=== PATIENT | male | born 1955 | race Caucasian/White ===

== ENCOUNTER 2023-05-27 12:24 | Observation (INO) ==
[2023-05-27 13:28] LABS: ABS Eosinophils 0.2 10^3/uL (0.0-0.5); ABS Lymphocytes 1.7 10^3/uL (1.0-4.8); ABS Monocytes 0.6 10^3/uL (0.0-1.1); ABS Neutrophils 4.8 10^3/uL (1.5-7.6); ABS Nucleated RBC 0.01 10^3/ul; Eosinophil % 2.2 %; Hematocrit 38.7 % (38-53); Hemoglobin 13.4 g/dL (13.2-16.3); Lymphocyte % 23.9 %; Mean Corpuscular Hemoglobin 32.1 pg (27-33); Mean Corpuscular Hgb Conc 34.8 g/dL (31-36); Mean Corpuscular Volume 92.3 fL (80-97); Mean Platelet Volume 8.7 fL (7.5-11.2); Nucleated Red Blood Cells % 0.1 %/100WBC (0.0-0.8); Platelet Count 200 10^3/uL (150-450); Red Blood Count 4.19 10^6/uL (4.06-5.63); Red Cell Distribution Width 14.8 % (12-17); White Blood Count 7.3 10^3/uL (3.6-10.2)
[2023-05-27 14:04] LABS: ALT 43 U/L (7-52); Albumin 3.7 g/dL (3.2-5.2); Albumin/Globulin Ratio 1.2 (1-3); Alkaline Phosphatase 81 U/L (35-149); Anion Gap 12 mmol/L (2-16); Blood Urea Nitrogen 13 mg/dL (6-24); CO2 Carbon Dioxide 24 mmol/L (22-32); Calcium 8.5 mg/dL (8.6-10.3); Chloride 97 mmol/L (101-111); Creatinine, Serum 1.02 mg/dL (0.67-1.17); Globulin 3.1 g/dL (2-4); Glucose 111 mg/dL (70-100); Sodium 133 mmol/L (135-145); Total Bilirubin 0.8 mg/dL (0.2-1.0); Total Protein 6.8 g/dL (6.4-8.9); eGFR CKD-EPI 80.1 (>60)
[2023-05-27 14:07] LABS: High Sens Troponin Baseline 6 pg/mL (<20)
[2023-05-27 14:34] LABS: High Sensitivity Troponin 1 Hr 7 pg/mL (<20)
[2023-05-27] MEDS ORDERED: Dexamethasone IV 4 MG/ML VIAL 1 ml VIAL IV SLOW PU ONE (15:43)
[2023-05-27] MEDS ORDERED: Midazolam 2 mg/2 ml VIAL 1 mg/ml 2 ml VIAL (2 mg) IV SLOW PU ONE ×2 (20:27→20:52)
[2023-05-27] MEDS ORDERED: Gadoteridol (CONTRAST) 279.3 MG/ML 10 ML IV ONE (21:35)
[2023-05-27] MEDS ORDERED: Lactated Ringers 1000 ml BAG 1,000 ML IV ONE (22:38)
[2023-05-27] MEDS: NS 0.9% 1000 ml BAG 1,000 ML IV SCH (23:08)
[2023-05-27] MEDS: Dexamethasone IV 4 MG/ML VIAL 1 ml VIAL IV SLOW PU SCH (23:08)
[2023-05-28] MEDS: Dexamethasone IV 4 MG/ML VIAL 1 ml VIAL IV SLOW PU SCH ×2 (06:06→13:24)
[2023-05-28] MEDS: NS 0.9% 1000 ml BAG 1,000 ML IV SCH (06:07)
[2023-05-28 06:20] LABS: ABS Monocytes 0.1 10^3/uL (0.0-1.1); ABS Neutrophils 1.5 10^3/uL (1.5-7.6); Eosinophil % 0.1 %; Hematocrit 37.2 % (38-53); Lymphocyte % 38.1 %; Mean Corpuscular Hemoglobin 32.1 pg (27-33); Mean Corpuscular Volume 91.6 fL (80-97); Mean Platelet Volume 8.6 fL (7.5-11.2); Nucleated Red Blood Cells % 0.2 %/100WBC (0.0-0.8); Platelet Count 179 10^3/uL (150-450); Red Blood Count 4.06 10^6/uL (4.06-5.63); Red Cell Distribution Width 14.8 % (12-17); White Blood Count 2.7 10^3/uL (3.6-10.2)
[2023-05-28] MEDS ORDERED: Iohexol 300 (CONTRAST) 10 ML SDV IV ONE (06:25)
[2023-05-28 06:41] LABS: Albumin 3.4 g/dL (3.2-5.2); Albumin/Globulin Ratio 0.9 (1-3); Calcium 8.8 mg/dL (8.6-10.3); Creatinine, Serum 0.79 mg/dL (0.67-1.17); Globulin 3.6 g/dL (2-4); Magnesium 2.2 mg/dL (1.9-2.7); Phosphorus 4.3 mg/dL (2.5-5.0); Potassium 4.6 mmol/L (3.5-5.0); Total Bilirubin 0.7 mg/dL (0.2-1.0); eGFR CKD-EPI 96.8 (>60)
[2023-05-28 07:03] LABS: Urine Appearance Cloudy; Urine Bilirubin Negative (Negative); Urine Blood Negative (Negative); Urine Color Yellow; Urine Glucose Negative (Negative); Urine Ketones Negative (Negative); Urine Nitrite Negative (Negative); Urine Protein Negative (Negative); Urine Specific Gravity 1.014 (1.002-1.030); Urine Urobilinogen Negative (Negative)
[2023-05-28] MEDS ORDERED: Nystatin TOP POWDER 15 GM BTL TOPICAL SCH (11:00)
[2023-05-28] MEDS ORDERED: Lidocaine 2% JELLY 6 ML Topical TOPICAL ONE (12:00)
[2023-05-28] MEDS: CMC:Ketoconazole 2 % CREAM (NF) 30 GM TUBE TOPICAL SCH ×2 (12:45→15:03)
[2023-05-28] MEDS: Triamcinolone 0.5% OINT 1 TUBE TOPICAL SCH ×2 (12:46→15:03)
[2023-05-28 13:41] LABS: Urine Appearance Clear; Urine Bilirubin Negative (Negative); Urine Blood Negative (Negative); Urine Color Yellow; Urine Glucose Negative (Negative); Urine Ketones Negative (Negative); Urine Nitrite Negative (Negative); Urine Protein Negative (Negative); Urine Urobilinogen Negative (Negative)
[2023-05-28] MEDS ORDERED: levETIRAcetam 1000MG IVPREMIX 1,000 MG/100 ML BAG IVPB ONE (14:56)
[2023-05-28 16:30] VITALS: BP 119/74
[2023-05-28 16:41] LABS: INR 1.09 (0.83-1.13)
== END 2023-05-28 18:30 | disposition short-term general hospital (02) ==
LOC: ED 12:24 → EDHOLD 12:24 → SUATTDRO 22:33 → MEDTELE 05-28 13:02
PROVIDERS: ADMIT Internal Medicine; ATTEND Internal Medicine

== ENCOUNTER 2023-06-12 16:10 | Inpatient (IN) ==
[2023-06-12] MEDS ORDERED: Cefepime 2 GM in Dextrose 2 GM/50 ML BAG IV ONE (16:21)
[2023-06-12] MEDS ORDERED: Azithromycin 500 mg/250 ml NS 500 MG/250 ML BAG IVPB ONE (16:21)
[2023-06-12] MEDS ORDERED: Lactated Ringers 1000 ml BAG 1,000 ML IV ONE ×2 (16:26→18:40)
[2023-06-12 16:56] LABS: ABS Lymphocytes 0.5 10^3/uL (1.0-4.8); ABS Monocytes 0.1 10^3/uL (0.0-1.1); ABS Neutrophils 4.6 10^3/uL (1.5-7.6); Eosinophil % 0.1 %; Hematocrit 40.8 % (38-53); Hemoglobin 13.7 g/dL (13.2-16.3); Lymphocyte % 9.3 %; Mean Corpuscular Hemoglobin 31.6 pg (27-33); Mean Corpuscular Hgb Conc 33.6 g/dL (31-36); Mean Corpuscular Volume 94.1 fL (80-97); Mean Platelet Volume 9.2 fL (7.5-11.2); Nucleated Red Blood Cells % 0.1 %/100WBC (0.0-0.8); Platelet Count 147 10^3/uL (150-450); Red Blood Count 4.33 10^6/uL (4.06-5.63); Red Cell Distribution Width 16.2 % (12-17); White Blood Count 5.3 10^3/uL (3.6-10.2)
[2023-06-12 17:13] LABS: Activated Partial Thrombo Time 28.3 seconds (26.0-38.0); INR 1.21 (0.83-1.13)
[2023-06-12 17:17] LABS: Albumin/Globulin Ratio 1.1 (1-3); C Reactive Protein 115.21 mg/L (<8.01); Calcium 7.7 mg/dL (8.6-10.3); Creatinine, Serum 0.83 mg/dL (0.67-1.17); Globulin 2.8 g/dL (2-4); Total Bilirubin 0.7 mg/dL (0.2-1.0); Total Protein 5.8 g/dL (6.4-8.9); eGFR CKD-EPI 95.3 (>60)
[2023-06-12] MEDS ORDERED: Iohexol 350 (CONTRAST) 500 ML MDV IV ONE (17:43)
[2023-06-12 19:12] LABS: Urine Appearance Cloudy; Urine Bilirubin Negative (Negative); Urine Blood Negative (Negative); Urine Color Amber; Urine Glucose Negative (Negative); Urine Ketones Negative (Negative); Urine Nitrite Negative (Negative); Urine Protein 1+(30 mg/dL) (Negative); Urine Specific Gravity 1.029 (1.002-1.030); Urine Urobilinogen Negative (Negative)
[2023-06-12 19:27] LABS: High Sensitivity Troponin 1 Hr 9 pg/mL (<20)
[2023-06-12 19:32] LABS: Urine Bacteria 2+ (Absent); Urine Red Blood Cell 1+(3-5/hpf) (Absent); Urine White Blood Cell 1+(6-10/hpf) (Absent)
[2023-06-12] MEDS ORDERED: Dexamethasone IV 4 MG/ML VIAL 1 ml VIAL IV SLOW PU ONE (20:10)
[2023-06-12] MEDS ORDERED: NS 0.9% 1000 ml BAG 1,000 ML IV SCH (21:30)
[2023-06-12] MEDS ORDERED: Enoxaparin 40 MG/0.4 ML SYR SUBCUT SCH (22:00)
[2023-06-12 22:42] LABS: PCO2 Arterial 31 mmHg (35-45); PO2 Arterial 169 mmHg (80-100)
[2023-06-12] MEDS ORDERED: Pantoprazole VIAL 40 MG VIAL IV SCH (23:45)
[2023-06-13] MEDS: Dexamethasone IV 4 MG/ML VIAL 1 ml VIAL IV SLOW PU SCH ×3 (04:23→15:51)
[2023-06-13] MEDS ORDERED: cefTRIAXone 1 gm/50 mL D5W 1 GM/50 ML BAG IV SCH (06:00)
[2023-06-13 07:20] LABS: ABS Lymphocytes 0.6 10^3/uL (1.0-4.8); ABS Monocytes 0.1 10^3/uL (0.0-1.1); ABS Neutrophils 4.3 10^3/uL (1.5-7.6); Hematocrit 35.5 % (38-53); Hemoglobin 12.2 g/dL (13.2-16.3); Lymphocyte % 11.3 %; Mean Corpuscular Hemoglobin 32.1 pg (27-33); Mean Corpuscular Hgb Conc 34.3 g/dL (31-36); Mean Corpuscular Volume 93.5 fL (80-97); Mean Platelet Volume 9.5 fL (7.5-11.2); Platelet Count 126 10^3/uL (150-450); Red Blood Count 3.79 10^6/uL (4.06-5.63); Red Cell Distribution Width 16.6 % (12-17)
[2023-06-13 07:38] LABS: Calcium 7.6 mg/dL (8.6-10.3); Creatinine, Serum 0.67 mg/dL (0.67-1.17); Magnesium 1.9 mg/dL (1.9-2.7); Potassium 4.3 mmol/L (3.5-5.0); eGFR CKD-EPI 101.7 (>60)
[2023-06-13] MEDS ORDERED: levETIRAcetam 500 MG IVPREMIX 500 MG/100 ML BAG IV SCH (15:00)
[2023-06-13 17:28] VITALS: BP 107/69
[2023-06-13] MEDS ORDERED: Azithromycin 500 mg/250 ml NS 500 MG/250 ML BAG IVPB SCH (19:30)
== END 2023-06-13 14:30 | disposition short-term general hospital (02) | DRG 871 ==
LOC: ED 16:10 → EDHOLD 21:20 → ICU 06-13 13:16
PROVIDERS: ADMIT Internal Medicine; ATTEND Internal Medicine

== ENCOUNTER 2023-06-20 15:24 | Inpatient (IN) ==
[2023-06-20] MEDS ORDERED: Piperacillin/Tazobac 3.375 BAG 3.375 GM/100 ML BAG IV ONE (22:35)
[2023-06-20] MEDS ORDERED: Zosyn per Pharmacy NOTE FOLLOW UP SCH (23:00)
[2023-06-20] MEDS ORDERED: Dextrose 50% Syringe 50 ml 25 GM/50 ML SYRINGE IV PUSH PRN (23:04)
[2023-06-21] MEDS: ZOSYN 3.375 GM Q8H per EXTENDED INFUSION IV SCH ×3 (03:27→21:34)
[2023-06-21 05:27] LABS: ABS Lymphocytes 0.4 10^3/uL (1.0-4.8); ABS Monocytes 0.1 10^3/uL (0.0-1.1); ABS Nucleated RBC 0.02 10^3/ul; Eosinophil % 0.1 %; Hematocrit 46.8 % (38-53); Hemoglobin 16.2 g/dL (13.2-16.3); Lymphocyte % 4.2 %; Mean Corpuscular Hemoglobin 31.9 pg (27-33); Mean Corpuscular Hgb Conc 34.6 g/dL (31-36); Mean Corpuscular Volume 92.2 fL (80-97); Mean Platelet Volume 9.2 fL (7.5-11.2); Nucleated Red Blood Cells % 0.2 %/100WBC (0.0-0.8); Platelet Count 116 10^3/uL (150-450); Red Blood Count 5.08 10^6/uL (4.06-5.63); Red Cell Distribution Width 17.1 % (12-17); White Blood Count 8.5 10^3/uL (3.6-10.2)
[2023-06-21 06:12] LABS: Calcium 8.2 mg/dL (8.6-10.3); Creatinine, Serum 0.8 mg/dL (0.67-1.17); Potassium 3.8 mmol/L (3.5-5.0); eGFR CKD-EPI 96.4 (>60)
[2023-06-21 06:13] LABS: Magnesium 2.2 mg/dL (1.9-2.7)
[2023-06-21] MEDS ORDERED: Azithromycin 500 mg/250 ml NS 500 MG/250 ML BAG IVPB SCH ×2 (09:00→13:00)
[2023-06-21] MEDS ORDERED: Furosemide 40 mg/4 ml IV VIAL IV ONE ×2 (13:18→20:00)
[2023-06-21 13:20] LABS: Urine Appearance Cloudy; Urine Bilirubin Negative (Negative); Urine Blood Negative (Negative); Urine Color Yellow; Urine Glucose Negative (Negative); Urine Ketones Negative (Negative); Urine Nitrite Negative (Negative); Urine Protein Negative (Negative); Urine Specific Gravity 1.024 (1.002-1.030); Urine Urobilinogen Negative (Negative)
[2023-06-21 13:37] LABS: Albumin 2.9 g/dL (3.2-5.2); Calcium 8.2 mg/dL (8.6-10.3); Creatinine, Serum 0.86 mg/dL (0.67-1.17); Potassium 3.8 mmol/L (3.5-5.0); Total Bilirubin 0.9 mg/dL (0.2-1.0); Total Protein 5.9 g/dL (6.4-8.9); eGFR CKD-EPI 94.3 (>60)
[2023-06-21] MEDS ORDERED: VORICONAZOLE 200 MG PO SCH (14:00)
[2023-06-21] MEDS ORDERED: Sodium Bicarb 8.4% Vial 50 ML 150 MEQ in D5W 1000 ml BAG 850 ML IV SCH (14:30)
[2023-06-21] MEDS: Voriconazole 50 mg TAB (NF) PO SCH ×2 (15:54→22:20)
[2023-06-21 17:05] LABS: Blood Urea Nitrogen 33 mg/dL (6-24); CO2 Carbon Dioxide 23 mmol/L (22-32); Calcium 7.8 mg/dL (8.6-10.3); Chloride 98 mmol/L (101-111); Creatinine, Serum 0.89 mg/dL (0.67-1.17); Glucose 136 mg/dL (70-100); Sodium 135 mmol/L (135-145); eGFR CKD-EPI 93.3 (>60)
[2023-06-21 17:07] LABS: Anion Gap 14 mmol/L (2-16)
[2023-06-21] MEDS ORDERED: cefTAZidime (*) 2 GM in NS 0.9% 100 ml BAG 100 ML IVPB SCH (20:00)
[2023-06-21] MEDS: Dexamethasone IV 4 MG/ML VIAL 1 ml VIAL IV SLOW PU SCH (20:28)
[2023-06-21] MEDS: Famotidine IV 10 MG/ML 2 ml VIAL (20 mg) IV SLOW PU SCH (21:36)
[2023-06-21] MEDS ORDERED: levETIRAcetam 500 MG/100 ML IV ONE (23:00)
[2023-06-22] MEDS: Dexamethasone IV 4 MG/ML VIAL 1 ml VIAL IV SLOW PU SCH ×4 (01:12→19:35)
[2023-06-22] MEDS: Sodium Bicarb 8.4% Vial 50 ML 150 MEQ in D5W 1000 ml BAG 850 ML IV SCH ×2 (01:45→11:59)
[2023-06-22] MEDS: ZOSYN 3.375 GM Q8H per EXTENDED INFUSION IV SCH ×3 (04:01→07:32)
[2023-06-22 04:11] LABS: Calcium 7.4 mg/dL (8.6-10.3); Creatinine, Serum 0.91 mg/dL (0.67-1.17); Phosphorus 4.2 mg/dL (2.5-5.0); Potassium 3.6 mmol/L (3.5-5.0); eGFR CKD-EPI 91.8 (>60)
[2023-06-22 04:39] LABS: Hematocrit 42.5 % (38-53); Mean Corpuscular Hemoglobin 32.3 pg (27-33); Mean Corpuscular Hgb Conc 35.3 g/dL (31-36); Mean Corpuscular Volume 91.7 fL (80-97); Red Blood Count 4.64 10^6/uL (4.06-5.63); Red Cell Distribution Width 17.4 % (12-17); White Blood Count 7.4 10^3/uL (3.6-10.2)
[2023-06-22 04:54] LABS: ABS Lymphocytes 0.3 10^3/uL (1.0-4.8); ABS Monocytes 0.1 10^3/uL (0.0-1.1); ABS Nucleated RBC 0.01 10^3/ul; Eosinophil % 0.1 %; Lymphocyte % 4.4 %; Nucleated Red Blood Cells % 0.2 %/100WBC (0.0-0.8); Platelet Count 86 10^3/uL (150-450)
[2023-06-22] MEDS: Voriconazole 50 mg TAB (NF) PO SCH ×2 (08:17→21:33)
[2023-06-22] MEDS: Famotidine IV 10 MG/ML 2 ml VIAL (20 mg) IV SLOW PU SCH ×2 (08:21→19:35)
[2023-06-22] MEDS ORDERED: Furosemide 40 mg/4 ml IV VIAL IV SLOW PU ONE ×2 (08:32→17:50)
[2023-06-22] MEDS ORDERED: Polyethylene Glycol 3350 17 GM PACKET PO PRN (09:52)
[2023-06-22] MEDS ORDERED: Magnesium Hydroxide LIQ 30 ML UDC PO PRN (09:52)
[2023-06-22] MEDS ORDERED: Senna TAB 8.6 mg TAB PO PRN (09:52)
[2023-06-22] MEDS: Magnesium Hydroxide LIQ 30 ML UDC PO SCH ×2 (11:45→21:32)
[2023-06-22] MEDS ORDERED: LaCOSAMide VIAL 150 MG in NS 0.9% 50 ML 50 ML IV ONE (14:14)
[2023-06-22 17:56] LABS: PCO2 Arterial 43 mmHg (35-45); PO2 Arterial 69 mmHg (80-100)
[2023-06-22] MEDS ORDERED: NS 0.9% 1000 ml BAG 1,000 ML IV SCH (18:15)
[2023-06-22 19:06] LABS: C Reactive Protein 10.1 mg/L (<8.01)
[2023-06-22 19:31] LABS: Urine Appearance Clear; Urine Bilirubin Negative (Negative); Urine Blood 2+ (Negative); Urine Color Yellow; Urine Glucose Negative (Negative); Urine Ketones Negative (Negative); Urine Nitrite Negative (Negative); Urine Protein Negative (Negative); Urine Specific Gravity 1.012 (1.002-1.030); Urine Urobilinogen Negative (Negative)
[2023-06-22 20:03] LABS: Urine Bacteria Absent (Absent); Urine Red Blood Cell 3+(>10/hpf) (Absent); Urine White Blood Cell Trace(0-5/hpf) (Absent)
[2023-06-22] MEDS: LaCOSAMide VIAL 100 MG in NS 0.9% 50 ML 50 ML IV SCH (22:04)
[2023-06-23 00:27] LABS: PCO2 Arterial 43 mmHg (35-45); PO2 Arterial 106 mmHg (80-100)
[2023-06-23] MEDS: Dexamethasone IV 4 MG/ML VIAL 1 ml VIAL IV SLOW PU SCH ×4 (01:17→20:11)
[2023-06-23 04:14] LABS: ABS Lymphocytes 0.3 10^3/uL (1.0-4.8); ABS Monocytes 0.2 10^3/uL (0.0-1.1); ABS Neutrophils 8.5 10^3/uL (1.5-7.6); ABS Nucleated RBC 0.01 10^3/ul; Hematocrit 42.9 % (38-53); Lymphocyte % 3.6 %; Mean Corpuscular Hemoglobin 32.3 pg (27-33); Mean Corpuscular Hgb Conc 34.9 g/dL (31-36); Mean Corpuscular Volume 92.6 fL (80-97); Mean Platelet Volume 9.9 fL (7.5-11.2); Nucleated Red Blood Cells % 0.1 %/100WBC (0.0-0.8); Platelet Count 86 10^3/uL (150-450); Red Blood Count 4.63 10^6/uL (4.06-5.63); Red Cell Distribution Width 17.7 % (12-17)
[2023-06-23] MEDS ORDERED: NS 0.9% 1000 ml BAG 1,000 ML IV SCH (04:15)
[2023-06-23 04:16] LABS: Anion Gap 7 mmol/L (2-16); Blood Urea Nitrogen 41 mg/dL (6-24); CO2 Carbon Dioxide 38 mmol/L (22-32); Calcium 7.2 mg/dL (8.6-10.3); Chloride 93 mmol/L (101-111); Creatinine, Serum 1.06 mg/dL (0.67-1.17); Glucose 147 mg/dL (70-100); Sodium 138 mmol/L (135-145); eGFR CKD-EPI 76.4 (>60)
[2023-06-23 04:59] LABS: Urine Chloride Concentration < 22 mmol/L; Urine Sodium Concentration 131 mmol/L
[2023-06-23] MEDS ORDERED: acetaZOLAMIDE IV 500 MG in NS 0.9% 50 ML 50 ML IVPB SCH (05:00)
[2023-06-23 05:26] LABS: Phosphorus 4.2 mg/dL (2.5-5.0); Potassium Redraw 3.3 mmol/L (3.5-5.0)
[2023-06-23] MEDS ORDERED: Potassium Chlor 20 meq TAB.ER PO ONE (07:06)
[2023-06-23] MEDS: Voriconazole 50 mg TAB (NF) PO SCH (07:52)
[2023-06-23] MEDS: Famotidine IV 10 MG/ML 2 ml VIAL (20 mg) IV SLOW PU SCH ×2 (07:53→20:11)
[2023-06-23] MEDS: Magnesium Hydroxide LIQ 30 ML UDC PO SCH ×2 (07:53→20:10)
[2023-06-23 07:55] LABS: Venous Bicarbonate HCO3 32.9 mmol/L (24-28)
[2023-06-23] MEDS ORDERED: Sulfur Hexaflouride MICROSPHR 25 MG VIAL ONE (08:43)
[2023-06-23] MEDS: LaCOSAMide VIAL 100 MG in NS 0.9% 50 ML 50 ML IV SCH ×2 (08:52→20:16)
[2023-06-23] MEDS ORDERED: PALONOSETRON HCL 0.05 MG/ML (0.25 MG) SYRINGE (0.05 MG/ML) IV ONE (13:00)
[2023-06-23] MEDS ORDERED: METHOTREXATE IVPB ONE ×4 (13:30→14:30)
[2023-06-23] MEDS ORDERED: NS 0.9% IVPB ONE ×3 (13:30→14:30)
[2023-06-23] MEDS ORDERED: D5W IVPB ONE (14:00)
[2023-06-23] MEDS ORDERED: Sulfamethox/Trimethoprim DS TAB 800/160 mg PO SCH (14:30)
[2023-06-23] MEDS: Sodium Bicarbonate 8.4% SYR 50 ml SYRINGE IV PRN (16:17)
[2023-06-23] MEDS: Sodium Bicarb 8.4% Vial 50 ML 150 MEQ in D5W 1000 ml BAG 850 ML IV SCH ×2 (16:17→23:08)
[2023-06-23] MEDS ORDERED: Furosemide 40 mg/4 ml IV VIAL IV SLOW PU ONE (16:24)
[2023-06-23] MEDS ORDERED: Furosemide 40 mg/4 ml IV VIAL ONE (16:26)
[2023-06-23 19:35] LABS: PCO2 Arterial 51 mmHg (35-45); PO2 Arterial 68 mmHg (80-100)
[2023-06-23 21:54] LABS: Anion Gap 6 mmol/L (2-16); Blood Urea Nitrogen 44 mg/dL (6-24); CO2 Carbon Dioxide 40 mmol/L (22-32); Calcium 6.8 mg/dL (8.6-10.3); Chloride 91 mmol/L (101-111); Creatinine, Serum 0.97 mg/dL (0.67-1.17); Glucose 270 mg/dL (70-100); Sodium 137 mmol/L (135-145)
[2023-06-24] MEDS: KCL 20 MEQ/100 ML IVPREMIX 20 MEQ/100 ML BAG IV SCH ×2 (01:01→03:06)
[2023-06-24] MEDS: Sodium Bicarb 8.4% Vial 50 ML 150 MEQ in D5W 1000 ml BAG 850 ML IV SCH ×3 (01:02→23:16)
[2023-06-24] MEDS: Dexamethasone IV 4 MG/ML VIAL 1 ml VIAL IV SLOW PU SCH ×4 (01:03→21:39)
[2023-06-24 04:24] LABS: PCO2 Arterial 52 mmHg (35-45); PO2 Arterial 78 mmHg (80-100)
[2023-06-24] MEDS ORDERED: NORMOSOL-R pH 7.4 1000 mL BAG 1,000 ML IV SCH (05:00)
[2023-06-24 06:50] LABS: Hematocrit 39.2 % (38-53); Hemoglobin 13.5 g/dL (13.2-16.3); Mean Corpuscular Hemoglobin 31.9 pg (27-33); Mean Corpuscular Hgb Conc 34.5 g/dL (31-36); Mean Corpuscular Volume 92.6 fL (80-97); Red Blood Count 4.23 10^6/uL (4.06-5.63); Red Cell Distribution Width 17.6 % (12-17)
[2023-06-24 07:04] LABS: Creatinine, Serum 0.84 mg/dL (0.67-1.17); Magnesium 2.7 mg/dL (1.9-2.7)
[2023-06-24 07:59] LABS: ABS Lymphocytes 0.2 10^3/uL (1.0-4.8); ABS Monocytes 0.1 10^3/uL (0.0-1.1); ABS Neutrophils 7.7 10^3/uL (1.5-7.6); ABS Nucleated RBC 0.01 10^3/ul; Lymphocyte % 2.1 %; Mean Platelet Volume 9.2 fL (7.5-11.2); Nucleated Red Blood Cells % 0.1 %/100WBC (0.0-0.8); Platelet Count 68 10^3/uL (150-450)
[2023-06-24] MEDS ORDERED: NS 0.9% 500 ml BAG 500 ML IV SCH (08:00)
[2023-06-24] MEDS ORDERED: Furosemide 40 mg/4 ml IV VIAL IV ONE ×2 (08:53→16:08)
[2023-06-24 09:22] LABS: Phosphorus 2.8 mg/dL (2.5-5.0)
[2023-06-24] MEDS: Famotidine IV 10 MG/ML 2 ml VIAL (20 mg) IV SLOW PU SCH ×2 (09:34→20:54)
[2023-06-24] MEDS: Magnesium Hydroxide LIQ 30 ML UDC PO SCH (09:35)
[2023-06-24 10:00] LABS: PCO2 Arterial 48 mmHg (35-45); PO2 Arterial 80 mmHg (80-100)
[2023-06-24] MEDS: LaCOSAMide VIAL 100 MG in NS 0.9% 50 ML 50 ML IV SCH ×2 (10:41→21:18)
[2023-06-24] MEDS: Sodium Bicarbonate 8.4% SYR 50 ml SYRINGE IV PRN (12:36)
[2023-06-24] MEDS ORDERED: Leucovorin Calcium 25 MG in NS 0.9% 50 ML 50 ML IVPB SCH (13:30)
[2023-06-24] MEDS ORDERED: LEUCOVORIN CALCIUM IVPB SCH (13:30)
[2023-06-24] MEDS ORDERED: LEUCOVORIN CALCIUM IV SCH (13:30)
[2023-06-24] MEDS ORDERED: NS 0.9% 250 ml 250 ML IV SCH (14:00)
[2023-06-24] MEDS ORDERED: acetaZOLAMIDE IV 250 MG in NS 0.9% 50 ML 50 ML IVPB ONE (14:30)
[2023-06-24 14:56] LABS: HIV 4th Generation Preliminary Reactive (Nonreactive)
[2023-06-24] MEDS: NS 0.9% IVPB SCH ×4 (15:06→23:37)
[2023-06-24] MEDS: LEUCOVORIN CALCIUM IVPB SCH ×4 (15:06→23:37)
[2023-06-24] MEDS ORDERED: NS 0.9% 250 ml 250 ML IV ONE (16:00)
[2023-06-24] MEDS ORDERED: acetaZOLAMIDE IV 250 MG in NS 0.9% 50 ML 50 ML IVPB SCH (17:00)
[2023-06-24 17:11] LABS: PCO2 Arterial 50 mmHg (35-45); PO2 Arterial 62 mmHg (80-100)
[2023-06-24 18:34] LABS: Calcium 7.3 mg/dL (8.6-10.3); Creatinine, Serum 0.84 mg/dL (0.67-1.17); Potassium 3.7 mmol/L (3.5-5.0)
[2023-06-24] MEDS ORDERED: Propofol 10 mg/ml 100 ML BTL 0 MG/0 ML BTL ONE (19:08)
[2023-06-24] MEDS ORDERED: Rocuronium 50 mg VIAL 10 mg/ml 5 ml VIAL (50 mg) ONE (19:10)
[2023-06-24] MEDS ORDERED: fentaNYL 100 mcg/2 ml 50 MCG/ML VIAL ONE ×2 (19:22→19:35)
[2023-06-24] MEDS ORDERED: Midazolam 5 mg/5 ml VIAL 1 mg/ml 5 ml VIAL (5 mg) ONE ×2 (19:22→19:36)
[2023-06-24] MEDS ORDERED: Phenylephrine 40 mcg/mL 10mL (400mcg) SYRINGE ONE (19:23)
[2023-06-24] MEDS ORDERED: Propofol 10 MG/ML 20 ML BTL ONE (19:37)
[2023-06-24] MEDS ORDERED: Norepinephrine 4 MG/250mL D5W 4,000 MCG/250 ML BAG IV ONE (19:46)
[2023-06-24] MEDS: Midazolam PREMIXBAG 1 MG/ML NS 100 ML IV SCH (19:51)
[2023-06-24] MEDS ORDERED: fentaNYL INFUSION 50 mcg/mL VL 2,500 MCG/50 ML VIAL IV SCH (20:00)
[2023-06-24] MEDS ORDERED: Norepinephrine 4 MG/250mL D5W 4,000 MCG/250 ML BAG IV SCH (20:00)
[2023-06-24 21:14] LABS: PCO2 Arterial 55 mmHg (35-45); PO2 Arterial 89 mmHg (80-100)
[2023-06-24] MEDS ORDERED: Midazolam 5 mg/5 ml VIAL 1 mg/ml 5 ml VIAL (5 mg) IV SLOW PU ONE ×2 (21:14)
[2023-06-24] MEDS ORDERED: fentaNYL 100 mcg/2 ml 50 MCG/ML VIAL IV SLOW PU ONE (21:15)
[2023-06-24] MEDS: fentaNYL INFUSION 50 mcg/mL VL 2,500 MCG/50 ML VIAL IV SCH (21:45)
[2023-06-24 21:48] LABS: Beta 2 Glycoprotein IgG <9.4 SGU
[2023-06-24] MEDS ORDERED: Furosemide 40 mg/4 ml IV VIAL IV SLOW PU ONE (22:09)
[2023-06-24 23:43] LABS: Calcium 7.2 mg/dL (8.6-10.3); Creatinine, Serum 0.98 mg/dL (0.67-1.17)
[2023-06-25 00:17] LABS: Fungitell Qualitative Result Positive (Negative); Fungitell Quantitative Value >500 pg/mL (<60 pg/mL)
[2023-06-25] MEDS: Sodium Bicarb 8.4% Vial 50 ML 150 MEQ in D5W 1000 ml BAG 850 ML IV SCH ×3 (00:21→13:17)
[2023-06-25 00:28] LABS: Aspergillus (Galactomannan) Ag <0.500 index (<0.5)
[2023-06-25] MEDS: Sodium Bicarbonate 8.4% SYR 50 ml SYRINGE IV PRN (00:36)
[2023-06-25] MEDS ORDERED: Amiodarone 150 mg IVPREMIX 150 MG/100 ML BAG IV ONE (00:43)
[2023-06-25] MEDS: Dexamethasone IV 4 MG/ML VIAL 1 ml VIAL IV SLOW PU SCH ×4 (01:39→19:27)
[2023-06-25] MEDS: Chlorhexidine MOUTHWASH 0.12% 15 ML UDC TOPICAL SCH ×6 (01:39→21:01)
[2023-06-25] MEDS ORDERED: NORMOSOL-R pH 7.4 1000 mL BAG 1,000 ML IV SCH ×2 (02:00→09:00)
[2023-06-25] MEDS: LEUCOVORIN CALCIUM IVPB SCH ×8 (02:12→22:31)
[2023-06-25] MEDS: NS 0.9% IVPB SCH ×8 (02:12→22:31)
[2023-06-25 05:08] LABS: Magnesium 2.6 mg/dL (1.9-2.7)
[2023-06-25 05:38] LABS: Calcium 6.7 mg/dL (8.6-10.3); Creatinine, Serum 1.12 mg/dL (0.67-1.17); Potassium 3.9 mmol/L (3.5-5.0); eGFR CKD-EPI 71.6 (>60)
[2023-06-25 05:51] LABS: ABS Lymphocytes 0.2 10^3/uL (1.0-4.8); ABS Nucleated RBC 0.01 10^3/ul; Hematocrit 37.3 % (38-53); Hemoglobin 12.8 g/dL (13.2-16.3); Lymphocyte % 1.9 %; Mean Corpuscular Hemoglobin 32.1 pg (27-33); Mean Corpuscular Hgb Conc 34.3 g/dL (31-36); Mean Corpuscular Volume 93.5 fL (80-97); Mean Platelet Volume 9.3 fL (7.5-11.2); Nucleated Red Blood Cells % 0.1 %/100WBC (0.0-0.8); Platelet Count 61 10^3/uL (150-450); Red Blood Count 3.99 10^6/uL (4.06-5.63); Red Cell Distribution Width 17.7 % (12-17); White Blood Count 9.2 10^3/uL (3.6-10.2)
[2023-06-25 08:27] LABS: Resp Rate 16
[2023-06-25 08:30] LABS: PCO2 Arterial 55 mmHg (35-45); PO2 Arterial 65 mmHg (80-100)
[2023-06-25] MEDS: LaCOSAMide VIAL 100 MG in NS 0.9% 50 ML 50 ML IV SCH ×2 (09:08→20:16)
[2023-06-25] MEDS: Famotidine IV 10 MG/ML 2 ml VIAL (20 mg) IV SLOW PU SCH ×2 (09:10→20:11)
[2023-06-25 10:09] LABS: Total Bilirubin 0.7 mg/dL (0.2-1.0)
[2023-06-25 14:54] LABS: Resp Rate 16
[2023-06-25 14:57] LABS: PCO2 Arterial 52 mmHg (35-45); PO2 Arterial 132 mmHg (80-100)
[2023-06-25] MEDS ORDERED: Furosemide 40 mg/4 ml IV VIAL IV ONE (15:41)
[2023-06-25] MEDS ORDERED: PRIMAQUINE PO SCH (17:00)
[2023-06-25] MEDS: Clindamycin 900 MG/D5W BAG 900 MG/50 ML BAG IVPB SCH (18:02)
[2023-06-25 18:06] LABS: Creatinine, Serum 0.91 mg/dL (0.67-1.17); Potassium 3.5 mmol/L (3.5-5.0); eGFR CKD-EPI 91.8 (>60)
[2023-06-25] MEDS: acetaZOLAMIDE IV 250 MG in NS 0.9% 50 ML 50 ML IVPB SCH (19:27)
[2023-06-25 21:05] LABS: HIV-1 Ab Differentiation,P Positive (Negative); HIV-2 Ab Differentiation,P Negative (Negative)
[2023-06-26] MEDS ORDERED: Furosemide 40 mg/4 ml IV VIAL IV SLOW PU ONE ×2 (00:17→21:34)
[2023-06-26] MEDS ORDERED: Furosemide 40 mg/4 ml IV VIAL ONE (00:20)
[2023-06-26] MEDS: Dexamethasone IV 4 MG/ML VIAL 1 ml VIAL IV SLOW PU SCH ×5 (00:34→23:41)
[2023-06-26] MEDS: Clindamycin 900 MG/D5W BAG 900 MG/50 ML BAG IVPB SCH ×3 (00:39→17:45)
[2023-06-26 00:52] LABS: PCO2 Arterial 51 mmHg (35-45); PO2 Arterial 90 mmHg (80-100)
[2023-06-26] MEDS ORDERED: NORMOSOL-R pH 7.4 1000 mL BAG 1,000 ML IV SCH ×3 (01:00→15:00)
[2023-06-26] MEDS: Chlorhexidine MOUTHWASH 0.12% 15 ML UDC TOPICAL SCH ×6 (01:14→20:42)
[2023-06-26] MEDS: LEUCOVORIN CALCIUM IVPB SCH ×8 (01:48→23:40)
[2023-06-26] MEDS: NS 0.9% IVPB SCH ×8 (01:48→23:40)
[2023-06-26 05:28] LABS: PCO2 Arterial 50 mmHg (35-45); PO2 Arterial 114 mmHg (80-100)
[2023-06-26 05:50] LABS: Albumin 2.1 g/dL (3.2-5.2); Albumin/Globulin Ratio 1.1 (1-3); Calcium 6.8 mg/dL (8.6-10.3); Creatinine, Serum 0.86 mg/dL (0.67-1.17); Phosphorus 3.5 mg/dL (2.5-5.0); Potassium 3.6 mmol/L (3.5-5.0); Total Bilirubin 1.1 mg/dL (0.2-1.0); Total Protein 4.1 g/dL (6.4-8.9); eGFR CKD-EPI 94.3 (>60)
[2023-06-26] MEDS ORDERED: Sodium Bicarbonate 8.4% SYR 50 ml SYRINGE IV ONE ×2 (06:41→21:35)
[2023-06-26] MEDS ORDERED: KCL 20 MEQ/100 ML IVPREMIX 40 MEQ/200 ML BAG ONE (06:43)
[2023-06-26] MEDS: KCL 20 MEQ/100 ML IVPREMIX 20 MEQ/100 ML BAG IV SCH ×2 (06:44→09:16)
[2023-06-26 06:52] LABS: Magnesium 2.4 mg/dL (1.9-2.7)
[2023-06-26 07:02] LABS: ABS Lymphocytes 0.1 10^3/uL (1.0-4.8); ABS Neutrophils 8.1 10^3/uL (1.5-7.6); Hematocrit 36.6 % (38-53); Hemoglobin 12.5 g/dL (13.2-16.3); Lymphocyte % 1.3 %; Mean Corpuscular Hemoglobin 32.1 pg (27-33); Mean Corpuscular Hgb Conc 34.3 g/dL (31-36); Mean Corpuscular Volume 93.5 fL (80-97); Mean Platelet Volume 9.5 fL (7.5-11.2); Platelet Count 54 10^3/uL (150-450); Red Blood Count 3.91 10^6/uL (4.06-5.63); Red Cell Distribution Width 17.5 % (12-17); White Blood Count 8.2 10^3/uL (3.6-10.2)
[2023-06-26] MEDS ORDERED: KCL 20 MEQ/100 ML IVPREMIX 20 MEQ/100 ML BAG IV SCH (08:00)
[2023-06-26] MEDS ORDERED: Furosemide 40 mg/4 ml IV VIAL IV ONE ×2 (08:30→14:13)
[2023-06-26] MEDS: Famotidine IV 10 MG/ML 2 ml VIAL (20 mg) IV SLOW PU SCH ×2 (09:17→20:24)
[2023-06-26] MEDS: PRIMAQUINE FEED TUBE SCH (09:17)
[2023-06-26] MEDS: LaCOSAMide VIAL 100 MG in NS 0.9% 50 ML 50 ML IV SCH ×2 (09:39→20:41)
[2023-06-26] MEDS: acetaZOLAMIDE IV 250 MG in NS 0.9% 50 ML 50 ML IVPB SCH (10:09)
[2023-06-26 15:50] LABS: Resp Rate 16
[2023-06-26 15:53] LABS: PCO2 Arterial 51 mmHg (35-45); PO2 Arterial 92 mmHg (80-100)
[2023-06-26] MEDS: fentaNYL INFUSION 50 mcg/mL VL 2,500 MCG/50 ML VIAL IV SCH (16:04)
[2023-06-26] MEDS: Sodium Bicarbonate 8.4% SYR 50 ml SYRINGE IV PRN (16:12)
[2023-06-26 16:39] LABS: Calcium 6.8 mg/dL (8.6-10.3); Creatinine, Serum 0.82 mg/dL (0.67-1.17); Potassium 3.8 mmol/L (3.5-5.0); eGFR CKD-EPI 95.7 (>60)
[2023-06-27] MEDS: Clindamycin 900 MG/D5W BAG 900 MG/50 ML BAG IVPB SCH ×3 (00:07→17:53)
[2023-06-27 00:15] LABS: PCO2 Arterial 48 mmHg (35-45); PO2 Arterial 75 mmHg (80-100)
[2023-06-27] MEDS: NORMOSOL-R pH 7.4 1000 mL BAG 1,000 ML IV SCH ×2 (01:05→10:19)
[2023-06-27] MEDS: Chlorhexidine MOUTHWASH 0.12% 15 ML UDC TOPICAL SCH ×6 (01:06→20:02)
[2023-06-27] MEDS: NS 0.9% IVPB SCH ×8 (02:08→23:38)
[2023-06-27] MEDS: LEUCOVORIN CALCIUM IVPB SCH ×8 (02:08→23:38)
[2023-06-27] MEDS ORDERED: Sodium Bicarbonate 8.4% SYR 50 ml SYRINGE IV ONE (04:00)
[2023-06-27 04:33] LABS: ABS Lymphocytes 0.1 10^3/uL (1.0-4.8); ABS Neutrophils 3.8 10^3/uL (1.5-7.6); ABS Nucleated RBC 0.01 10^3/ul; Hematocrit 30.2 % (38-53); Hemoglobin 10.6 g/dL (13.2-16.3); Mean Corpuscular Hemoglobin 32.7 pg (27-33); Mean Corpuscular Volume 93.5 fL (80-97); Nucleated Red Blood Cells % 0.1 %/100WBC (0.0-0.8); Platelet Count 42 10^3/uL (150-450); Red Blood Count 3.23 10^6/uL (4.06-5.63); Red Cell Distribution Width 17.2 % (12-17); White Blood Count 3.9 10^3/uL (3.6-10.2)
[2023-06-27 04:52] LABS: Albumin 1.8 g/dL (3.2-5.2); Albumin/Globulin Ratio 0.9 (1-3); Calcium 6.6 mg/dL (8.6-10.3); Creatinine, Serum 0.74 mg/dL (0.67-1.17); Globulin 1.9 g/dL (2-4); Magnesium 2.3 mg/dL (1.9-2.7); Phosphorus 3.2 mg/dL (2.5-5.0); Potassium 3.4 mmol/L (3.5-5.0); Total Bilirubin 0.8 mg/dL (0.2-1.0); Total Protein 3.7 g/dL (6.4-8.9); eGFR CKD-EPI 98.7 (>60)
[2023-06-27] MEDS: Midazolam PREMIXBAG 1 MG/ML NS 100 ML IV SCH (04:54)
[2023-06-27] MEDS ORDERED: acetaZOLAMIDE IV 500 MG in NS 0.9% 50 ML 50 ML IVPB SCH (05:00)
[2023-06-27] MEDS: KCL 20 MEQ/100 ML IVPREMIX 20 MEQ/100 ML BAG IV SCH ×2 (05:32→09:20)
[2023-06-27] MEDS: Dexamethasone IV 4 MG/ML VIAL 1 ml VIAL IV SLOW PU SCH ×3 (05:52→18:18)
[2023-06-27] MEDS ORDERED: Vancomycin 1,000 MG in NS 0.9% 250 ml 250 ML IVPB ONE (07:22)
[2023-06-27 07:52] LABS: Direct Bilirubin 0.4 mg/dL (0.03-0.18); Indirect Bilirubin 0.4 mg/dL (0.3-1.0)
[2023-06-27] MEDS ORDERED: Vancomycin per Pharmacy 1 EA NOTE FOLLOW UP SCH (08:00)
[2023-06-27] MEDS: Famotidine IV 10 MG/ML 2 ml VIAL (20 mg) IV SLOW PU SCH ×2 (08:19→20:02)
[2023-06-27] MEDS: PRIMAQUINE FEED TUBE SCH (08:20)
[2023-06-27 08:54] LABS: PCO2 Arterial 53 mmHg (35-45); PO2 Arterial 67 mmHg (80-100)
[2023-06-27] MEDS: LaCOSAMide VIAL 100 MG in NS 0.9% 50 ML 50 ML IV SCH ×2 (09:44→20:38)
[2023-06-27] MEDS: acetaZOLAMIDE IV 250 MG in NS 0.9% 50 ML 50 ML IVPB SCH (10:49)
[2023-06-27 14:28] LABS: HIV-1 RNA (PCR) 17300 copies/mL (Undetected)
[2023-06-27 18:16] LABS: PCO2 Arterial 48 mmHg (35-45); PO2 Arterial 70 mmHg (80-100)
[2023-06-27] MEDS: Vancomycin 1000 MG in NS 0.9% 250 ML IVPB SCH (20:00)
[2023-06-28] MEDS ORDERED: Furosemide 40 mg/4 ml IV VIAL IV SLOW PU ONE (01:12)
[2023-06-28] MEDS: Dexamethasone IV 4 MG/ML VIAL 1 ml VIAL IV SLOW PU SCH ×4 (01:16→18:02)
[2023-06-28] MEDS: Clindamycin 900 MG/D5W BAG 900 MG/50 ML BAG IVPB SCH ×4 (01:17→18:01)
[2023-06-28] MEDS: Chlorhexidine MOUTHWASH 0.12% 15 ML UDC TOPICAL SCH ×5 (01:17→17:03)
[2023-06-28] MEDS: NS 0.9% IVPB SCH ×5 (01:20→13:50)
[2023-06-28] MEDS: LEUCOVORIN CALCIUM IVPB SCH ×5 (01:20→13:50)
[2023-06-28] MEDS: NORMOSOL-R pH 7.4 1000 mL BAG 1,000 ML IV SCH ×4 (01:27→17:25)
[2023-06-28] MEDS: Sodium Bicarbonate 8.4% SYR 50 ml SYRINGE IV PRN (04:15)
[2023-06-28 04:37] LABS: ABS Lymphocytes 0.1 10^3/uL (1.0-4.8); ABS Neutrophils 2.3 10^3/uL (1.5-7.6); ABS Nucleated RBC 0.01 10^3/ul; Eosinophil % 0.1 %; Hematocrit 34.1 % (38-53); Hemoglobin 11.8 g/dL (13.2-16.3); Lymphocyte % 2.7 %; Mean Corpuscular Hemoglobin 32.7 pg (27-33); Mean Corpuscular Hgb Conc 34.5 g/dL (31-36); Mean Corpuscular Volume 94.8 fL (80-97); Mean Platelet Volume 9.1 fL (7.5-11.2); Nucleated Red Blood Cells % 0.6 %/100WBC (0.0-0.8); Platelet Count 37 10^3/uL (150-450); Red Cell Distribution Width 17.6 % (12-17); White Blood Count 2.4 10^3/uL (3.6-10.2)
[2023-06-28 04:51] LABS: Albumin 2.1 g/dL (3.2-5.2); Calcium 6.6 mg/dL (8.6-10.3); Creatinine, Serum 0.53 mg/dL (0.67-1.17); Globulin 2.1 g/dL (2-4); Phosphorus 2.4 mg/dL (2.5-5.0); Potassium 3.3 mmol/L (3.5-5.0); Total Bilirubin 0.8 mg/dL (0.2-1.0); Total Protein 4.2 g/dL (6.4-8.9); eGFR CKD-EPI 109.2 (>60)
[2023-06-28 07:17] LABS: PCO2 Arterial 40 mmHg (35-45); PO2 Arterial 76 mmHg (80-100)
[2023-06-28] MEDS: Famotidine IV 10 MG/ML 2 ml VIAL (20 mg) IV SLOW PU SCH (07:20)
[2023-06-28] MEDS: PRIMAQUINE FEED TUBE SCH (07:21)
[2023-06-28] MEDS: Vancomycin 1000 MG in NS 0.9% 250 ML IVPB SCH (07:40)
[2023-06-28] MEDS: acetaZOLAMIDE IV 250 MG in NS 0.9% 50 ML 50 ML IVPB SCH (08:46)
[2023-06-28] MEDS ORDERED: Iohexol 350 (CONTRAST) 500 ML MDV IV ONE (09:09)
[2023-06-28] MEDS: KCL 20 MEQ/100 ML IVPREMIX 20 MEQ/100 ML BAG IV SCH ×2 (09:17→11:28)
[2023-06-28] MEDS: LaCOSAMide VIAL 100 MG in NS 0.9% 50 ML 50 ML IV SCH (09:28)
[2023-06-28] MEDS ORDERED: Midazolam 2 mg/2 ml VIAL 1 mg/ml 2 ml VIAL (2 mg) IV SLOW PU ONE (10:18)
[2023-06-28] MEDS ORDERED: Piperacillin/Tazobac 3.375 BAG 3.375 GM/100 ML BAG IV ONE (12:33)
[2023-06-28] MEDS ORDERED: Zosyn per Pharmacy NOTE FOLLOW UP SCH (13:00)
[2023-06-28] MEDS ORDERED: Rocuronium 50 mg VIAL 10 mg/ml 5 ml VIAL (50 mg) IV ONE (13:18)
[2023-06-28] MEDS ORDERED: Rocuronium 50 mg VIAL 10 mg/ml 5 ml VIAL (50 mg) ONE (13:20)
[2023-06-28] MEDS ORDERED: Furosemide 100 mg/10 ml IV 100 MG in NS 0.9% 100 ml BAG 90 ML IV SCH (13:30)
[2023-06-28] MEDS ORDERED: NORMOSOL-R pH 7.4 1000 mL BAG 500 ML IV SCH (14:00)
[2023-06-28] MEDS: fentaNYL INFUSION 50 mcg/mL VL 2,500 MCG/50 ML VIAL IV SCH (15:58)
[2023-06-28] MEDS ORDERED: NS 0.9% IVPB SCH (17:00)
[2023-06-28] MEDS ORDERED: PHENYLEPHRINE DRIP IVPREMIX 50 MG/250 ML BAG IV SCH (17:00)
[2023-06-28] MEDS ORDERED: LEUCOVORIN CALCIUM IVPB SCH (17:00)
[2023-06-28 17:19] LABS: Resp Rate 27
[2023-06-28 17:22] LABS: PCO2 Arterial 52 mmHg (35-45)
[2023-06-28 17:26] LABS: PO2 Arterial 55 mmHg (80-100)
[2023-06-28] MEDS ORDERED: Atropine 1% (ORAL/SL) 15 ML BTL SL PRN (17:58)
[2023-06-28] MEDS ORDERED: ZOSYN 3.375 GM Q8H per EXTENDED INFUSION IV SCH (18:00)
[2023-06-28 18:22] VITALS: BP 86/54
[2023-06-28] MEDS: HYDROmorphone 1 MG/1 ML SYRINGE IV SCH ×3 (18:27→19:16)
[2023-06-29] MEDS ORDERED: Vancomycin Trough Check NOTE FOLLOW UP ONE (07:30)
[2023-06-30 11:37] LABS: % CD3 54 % (58-86); % CD4 1 % (32-64); % CD8 53 % (8-40); Absolute CD45 Count 0.11 thou/mcL (0.82-2.84); CD3 61 cells/mcL (550-2202); CD4 1 cells/mcL (365-1437); CD8 60 cells/mcL (80-846)
[2023-07-04 23:52] LABS: Atazanavir & Ritonavir SUSC; Bictegravir SUSC; Cabotegravir SUSC; Darunavir & Ritonavir SUSC; Dolutegravir SUSC; Doravirine SUSC; Elvitegravir SUSC; Fosamprenavir & Ritonavir SUSC; HIV-1 Genotype Drug Resistance INTERP; HIV-1 group M subtype B; Indinavir & Ritonavir SUSC; Lopinavir & Ritonavir SUSC; Raltegravir SUSC; Saquinavir & Ritonavir SUSC; Tipranavir & Ritonavir SUSC
== END 2023-06-28 18:52 | disposition expired | DRG 208 ==
LOC: ICU 19:02
PROVIDERS: ADMIT Internal Medicine Hematology & Oncology; ATTEND Internal Medicine Hematology & Oncology